=== PATIENT | female | born 1990 | race Caucasian/White ===

== ENCOUNTER 2017-01-18 00:45 | Emergency (ER) | payer OTHER ==
[~2017-01-18] VITALS: Ht 162.6 cm; Wt 54.4 kg
[2017-01-18 00:47] VITALS: BP 129/89
--- NOTE | 2017-01-18 01:03 | NUR ---
/ CAME IN DUE TO CHEST PAIN, STARTED AN HOUR AGO WHILE AT WORK. NON-RADIATING. PT CLAIMED SHE THINKS SHE IS JUST ANXIOUS. PATIENT STATES PAIN OF 6/10 AT THIS TIME; VSS; PATIENT POSITIONED FOR COMFORT; HOB ELEVATED; BEDRAILS UP X2; BED DOWN. ER MD MADE AWARE OF PT STATUS.
--- NOTE | 2017-01-18 01:03 | NUR ---
PT TAKEN TO BED 3
--- NOTE | 2017-01-18 01:10 | NUR ---
Dr. Haddad evaluating patient at bedside.
[2017-01-18 01:22] VITALS: BP 120/75
--- NOTE | 2017-01-18 01:22 | NUR ---
Patient discharged with v/s stable BY DR. LUIS. Written and verbal after care instructions given and explained BY DR. LUIS. Patient alert, oriented and verbalized understanding of instructions BY DR. LUIS. Ambulatory with steady gait. All questions addressed prior to discharge BY DR. LUIS. ID band removed BY DR. LUIS. Patient advised to follow up with PMD BY DR. LUIS. Rx of KLONOPIN 1MG TABLET 1 TAB ORALLY 2 TIMES A DAY, MEDROL 4MG TAB given DR. LUIS. Patient educated on indication of medication including possible reaction and side effects BY DR. LUIS. Opportunity to ask questions provided and answered BY DR. LUIS.
== END 2017-01-18 01:22 | disposition home or self-care (01) ==
LOC: MED 00:45
DX: F41.9 Anxiety disorder, unspecified (principal); T78.1XXA Other adverse food reactions, not elsewhere classified, initial encounter; R03.0 Elevated blood-pressure reading, without diagnosis of hypertension; X58.XXXA Exposure to other specified factors, initial encounter

== ENCOUNTER 2018-05-19 18:41 | Emergency (ER) | payer OTHER ==
[~2018-05-19] VITALS: Ht 162.6 cm; Wt 62.1 kg
[2018-05-19 17:26] VITALS: BP 118/69
[~2018-05-19 18:41] MED LIST: OSC500 PO; PREN-380 PO
--- NOTE | 2018-05-19 18:41 | NUR ---
PT RETURNED FROM OB AND CHECKED BACK INTO ER
[2018-05-19 19:12] VITALS: BP 107/74
--- NOTE | 2018-05-19 19:20 | NUR ---
PATIENT PRESENTS TO ED WITH NASAL DISCHARGE X2 MONTHS. PATIENT DENIES ANY PAIN AT THIS TIME. PATIENT STATES CLEAR DISCHARGE WITHOUT TASTE OR SMELL. PATIENT STATES SHE WAS REFERRED TO THE ED BY HER OB "IF IT KEPT HAPPENING". PATIENT STATES SHE GETS HEADACHES AND DIZZINESS WHEN DISCHARGE OCCURS. NO DISCHARGE NOTED AT THIS TIME. PATIENT IS CURRENTLY 27 WEEKS . NO SIGNS OR SYMPTOMS OF ACUTE DISTRESS NOTED AT THIS TIME. WILL CONTINUE TO MONITOR PATIENT.
--- NOTE | 2018-05-19 20:16 | NUR ---
CULTURE SENT TO LAB
[2018-05-19 20:35] LABS: APPEARANCE,URINE CLEAR (CLEAR); BILIRUBIN,URINE NEGATIVE (NEGATIVE); BLOOD, URINE NEGATIVE (NEGATIVE); COLOR,URINE YELLOW (YELLOW); LEUKOCYTE ESTERASE ,URINE NEGATIVE (NEGATIVE); NITRITE, URINE NEGATIVE (NEGATIVE); PH,URINE 7.5 (5.0-9.0); UGLUCOSE NEGATIVE (NEGATIVE)
[2018-05-19 21:11] VITALS: BP 107/58
== END 2018-05-19 21:12 | disposition home or self-care (01) ==
LOC: MED 18:41 → EDSTATUS 18:41 → MED 21:12
DX: O26.892 Other specified pregnancy related conditions, second trimester (principal); J34.89 Other specified disorders of nose and nasal sinuses; Z3A.25 25 weeks gestation of pregnancy; Z91.013 Allergy to seafood; Z88.8 Allergy status to other drugs, medicaments and biological substances; Z79.899 Other long term (current) drug therapy
CPT/HCPCS: 76805; 81003; 87070; 99285; Q0092

== ENCOUNTER 2019-06-04 16:50 | Emergency (ER) | payer OTHER ==
[~2019-06-04] VITALS: Ht 162.6 cm; Wt 63.5 kg
--- NOTE | 2019-06-04 16:52 | NUR ---
PT AMBULATED TO ER BED 05
[2019-06-04 16:56] VITALS: BP 102/54
[2019-06-04] MEDS ORDERED: diphenhydrAMINE 50 MG/ML VIAL IVP ONE (17:00)
[2019-06-04] MEDS ORDERED: EPINEPHrine 1:1000 - 1 MG/ML AMP SUBQ ONE (17:00)
[2019-06-04] MEDS ORDERED: methylPREDNISolone SS 125 MG/2 ML VIAL IVP ONE (17:00)
[2019-06-04] MEDS ORDERED: NACL 0.9% 500 ML IV ONE (17:00)
--- NOTE | 2019-06-04 17:14 | NUR ---
PT C/O ALLERGIC REACTION AFTER EATING SEAFOOD AT A [employer] WITH . PATIENT ON RA 100%. REPORTS SOB, ITCHY ON CHEEKS, NUMBNESS AND SWELLING ON LIPS, TONGUE, AND THROAT. NO RASH NOTICED ON BODY. PATIENT STATES PAIN OF 0/10 AT THIS TIME; VSS; PATIENT POSITIONED FOR COMFORT; HOB ELEVATED; BEDRAILS UP X2; BED DOWN. ER MD MADE AWARE OF PT STATUS. IS AT BEDSIDE.
--- NOTE | 2019-06-04 17:37 | NUR ---
PT REPORTS OF FEELING BETTER.
[2019-06-04 18:15] VITALS: BP 107/59
--- NOTE | 2019-06-04 18:15 | NUR ---
Pt was discharged by Dr. Haddad with v/s stable. Written and verbal after care instructions given and explained. Patient verbalized understanding. Ambulatory with steady gait. All questions addressed prior to discharge. Advised to follow up with PMD.
== END 2019-06-04 18:15 | disposition home or self-care (01) ==
LOC: MED 16:50
DX: T78.1XXA Other adverse food reactions, not elsewhere classified, initial encounter (principal); R60.0 Localized edema; L29.9 Pruritus, unspecified; Z79.899 Other long term (current) drug therapy; Z91.013 Allergy to seafood; Z88.1 Allergy status to other antibiotic agents; X58.XXXA Exposure to other specified factors, initial encounter
CPT/HCPCS: 96372; 96374; 96375; 99291; J0171; J1200; J2930; J7030